=== PATIENT | female | born 1965 | race Hispanic/Latino ===

== ENCOUNTER → 2017-09-16 | Outpatient (CLI) | payer BC ==
[~2017-09-16] MED LIST: FEXO-23 PO; METO-408 PO; ROSU5TAB PO; WARF5TAB76 PO
== END | disposition home or self-care (01) ==
LOC: RAH 12:52
PROVIDERS: ATTEND Internal Medicine Cardiovascular Disease
DX: I71.1 Thoracic aortic aneurysm, ruptured (principal)
CPT/HCPCS: 71250

== ENCOUNTER → 2018-11-10 | Outpatient (CLI) | payer BC | END | disposition home or self-care (01) | LOC: RAH 12:57 | PROVIDERS: ATTEND Internal Medicine Cardiovascular Disease | DX: I71.2 Thoracic aortic aneurysm, without rupture (principal); Q25.49 Other congenital malformations of aorta | CPT/HCPCS: 71250 ==

== ENCOUNTER 2020-03-26 08:09 | Day surgery (SDC) | payer BC ==
[2020-03-25 13:10] LABS: BASOPHILS % (AUTO) 0.5 % (0.0-5.0); EOSINOPHILS % (AUTO) 0.5 % (0.0-8.0); HEMATOCRIT 35.8 % (36-48); LYMPHOCYTES % (AUTO) 33.9 % (21.0-51.0); MEAN CORPUSCULAR HEMOGLOBIN 25.8 pg (27.0-33.0); MEAN CORPUSCULAR HGB CONC 31.6 g/dL (32.0-36.0); MEAN CORPUSCULAR VOLUME 81.7 fL (79-99); MONOCYTES % (AUTO) 5.1 % (3.0-13.0); NEUTROPHILS % (AUTO) 59.7 % (40.0-77.0); PLATELET COUNT (AUTO) 276 K/uL (130-400); RED BLOOD CELL COUNT(AUTO) 4.38 MIL/uL (4.00-5.50); RED CELL DISTRIBUTION WIDTH 15.7 % (11.0-15.5); WHITE BLOOD COUNT (AUTO) 6.2 K/uL (4.8-10.8)
[2020-03-25 13:24] LABS: CREATININE 0.8 mg/dL (0.5-1.5); POTASSIUM 4.4 mmol/L (3.5-5.1)
[2020-03-25 13:27] LABS: INR 3.38 (0.85-1.15); PARTIAL THROMBOPLASTIN TIME 45.3 SEC (26.3-35.5); PROTHROMBIN TIME 34.8 SEC (9.6-11.6)
[2020-03-25 14:44] VITALS: BP 120/64
--- NOTE | 2020-03-25 14:48 | NUR ---
REPORT CALLED MARIANNA REARDON WITH DR BECKER AND INFORMED OF ABNORMAL PT/INR/PTT AND PT SCHEDULED FOR ZACHERY. NO NEW ORDERS GIVEN. MD WILL PROCEED WITH PROCEDURE
[2020-03-26] VITALS (18 sets, daily range): BP systolic 103–169; BP diastolic 55–93
[~2020-03-26] VITALS: Ht 165.1 cm; Wt 67.3 kg
[~2020-03-26 08:09] MED LIST changes: +AEC81 PO; +ESCI5TAB PO; -FEXO-23 PO; +LOSA25TA41 PO; +ROSU10TA28 PO; -ROSU5TAB PO; +VITAMIN B12 COMPLEX PO; +VITAMIN D PO; +WARF5TAB PO; -WARF5TAB76 PO
[2020-03-26] MEDS ORDERED: LIDOCAINE HCL 2% VISCOUS 15 ML UDCUP PO SCH (08:26)
[2020-03-26] MEDS ORDERED: SODIUM CHLORIDE 0.9% 1000ML 1,000 ML IV ONE (09:30)
[2020-03-26] MEDS ORDERED: MIDAZOLAM HCL 1 MG/ML 2ML VIAL ONE ×2 (11:30→11:52)
[2020-03-26] MEDS ORDERED: FENTANYL CITRATE PF 50 MCG/1 ML 2ML VIAL ONE (11:31)
== END 2020-03-26 13:10 | disposition home or self-care (01) ==
LOC: DAH 08:09 → EDSTATUS 11:30 → DAH 13:10
PROVIDERS: ATTEND Internal Medicine Cardiovascular Disease
DX: I08.3 Combined rheumatic disorders of mitral, aortic and tricuspid valves (principal); I25.3 Aneurysm of heart; I20.9 Angina pectoris, unspecified; Z91.013 Allergy to seafood; Z88.8 Allergy status to other drugs, medicaments and biological substances; Z91.018 Allergy to other foods; Z79.82 Long term (current) use of aspirin; Z79.899 Other long term (current) drug therapy; Z79.01 Long term (current) use of anticoagulants; Z79.02 Long term (current) use of antithrombotics/antiplatelets; Z95.810 Presence of automatic (implantable) cardiac defibrillator; Z98.890 Other specified postprocedural states
CPT/HCPCS: 36415; 80048; 85025; 85610; 85730; 93005; 93313; A4215; A4216; A4221; A4222; A4223 ×3; A4606; A4663; J2250 ×2; J3010; J7030; 99152

== ENCOUNTER 2022-12-02 06:03 | Day surgery (SDC) | payer BC ==
[2022-11-30 10:45] LABS: BASOPHILS % (AUTO) 0.5 % (0.0-5.0); EOSINOPHILS % (AUTO) 0.7 % (0.0-8.0); HEMATOCRIT 38.8 % (36-48); LYMPHOCYTES % (AUTO) 20.8 % (21.0-51.0); MEAN CORPUSCULAR HEMOGLOBIN 27.3 pg (27.0-33.0); MEAN CORPUSCULAR HGB CONC 31.2 g/dL (32.0-36.0); MEAN CORPUSCULAR VOLUME 87.6 fL (79-99); NEUTROPHILS % (AUTO) 74.5 % (40.0-77.0); PLATELET COUNT (AUTO) 235 K/uL (130-400); RED BLOOD CELL COUNT(AUTO) 4.43 MIL/uL (4.00-5.50); RED CELL DISTRIBUTION WIDTH 14.1 % (11.0-15.5); WHITE BLOOD COUNT (AUTO) 5.7 K/uL (4.8-10.8)
[2022-11-30 10:54] LABS: CREATININE 0.8 mg/dL (0.5-1.5); POTASSIUM 4.4 mmol/L (3.5-5.1)
[2022-11-30 10:56] LABS: INR 2.14 (0.85-1.15); PROTHROMBIN TIME 22.3 SEC (9.6-11.6)
[2022-11-30 10:58] LABS: PARTIAL THROMBOPLASTIN TIME 41.8 SEC (26.3-35.5)
[2022-11-30 11:09] VITALS: BP 142/84
[2022-12-02] VITALS (10 sets, daily range): BP systolic 120–162; BP diastolic 61–87
[~2022-12-02] VITALS: Ht 162.6 cm; Wt 71.9 kg
[~2022-12-02 06:03] MED LIST changes: +PRED20TA3 PO; -VITAMIN B12 COMPLEX PO; -VITAMIN D PO
[2022-12-02] MEDS ORDERED: 0.9%NACL 1000ML 1,000 ML IV ONE (06:17)
[2022-12-02 07:12] LABS: INR 1.26 (0.85-1.15); PROTHROMBIN TIME 13.6 SEC (9.6-11.6)
[2022-12-02] MEDS ORDERED: LIDOCAINE HCL 1% MDV 50ML VIAL ONE (07:15)
[2022-12-02] MEDS ORDERED: MEPERIDINE-PF 25 MG/ML SYG ONE ×4 (07:15→08:22)
[2022-12-02] MEDS ORDERED: MIDAZOLAM HCL 1 MG/ML 2ML VIAL ONE ×4 (07:15→08:22)
[2022-12-02] MEDS ORDERED: BUPIVACAINE/PF 0.25% 10ML VIAL IJ ONE (07:16)
[2022-12-02] MEDS ORDERED: CEFAZOLIN SODIUM 1 GM VIAL ONE ×2 (07:16→11:53)
[2022-12-02] MEDS ORDERED: THROMBIN-JMI 5000 UNIT/VIAL TP ONE (08:24)
[2022-12-02] MEDS ORDERED: BACITRACIN 1 EACH PACKET TP ONE (08:43)
[2022-12-02] MEDS ORDERED: ACETAMINOPHEN WITH CODEINE 1 TAB TAB PO PRN ×2 (09:00)
[2022-12-02] MEDS ORDERED: 0.9%NACL 50ML 50 ML IV ONE (11:52)
[2022-12-02] MEDS ORDERED: CEFAZOLIN SODIUM 1 GM VIAL IVPB SCH (14:00)
== END 2022-12-02 14:05 | disposition home or self-care (01) ==
LOC: DAH 06:03
PROVIDERS: ATTEND Internal Medicine Cardiovascular Disease
DX: Z45.02 Encounter for adjustment and management of automatic implantable cardiac defibrillator (principal); I44.2 Atrioventricular block, complete; I42.8 Other cardiomyopathies; I50.42 Chronic combined systolic (congestive) and diastolic (congestive) heart failure; I35.1 Nonrheumatic aortic (valve) insufficiency; Z88.3 Allergy status to other anti-infective agents; Z79.82 Long term (current) use of aspirin; Z79.01 Long term (current) use of anticoagulants; Z91.013 Allergy to seafood; Z79.899 Other long term (current) drug therapy
CPT/HCPCS: 80048; 85025; 85610 ×2; 85730; 36415 ×2; 93005; 33264; C1882; J0690 ×2; J7030; J2250 ×4; J3490 ×3; J2175 ×4; A4215; A4335; A4222; A4221; A4663; A4216; A4606; A4223 ×3; A4554; 99156; 99157

== ENCOUNTER → 2023-01-27 | Outpatient (CLI) | payer BC ==
[~2023-01-27] MED LIST changes: -PRED20TA3 PO
== END | disposition home or self-care (01) ==
LOC: RAH 13:55
PROVIDERS: ATTEND Internal Medicine Cardiovascular Disease
DX: I71.21 Aneurysm of the ascending aorta, without rupture (principal); I71.40 Abdominal aortic aneurysm, without rupture, unspecified; I25.10 Atherosclerotic heart disease of native coronary artery without angina pectoris; M47.815 Spondylosis without myelopathy or radiculopathy, thoracolumbar region
CPT/HCPCS: 71250

== ENCOUNTER → 2023-10-14 | Outpatient (CLI) | payer BC, SELFPAY ==
[~2023-10-14] MED LIST changes: +DiphenhydrAMINE HCL 50 MG/ML VIAL ONE; +IOHEXOL 350 MG/ML 100ML INFUS..BTL IV ONE; +SOLU-MEDROL 125MG VIAL ONE
== END | disposition home or self-care (01) ==
LOC: RAH 09:35
PROVIDERS: ATTEND Internal Medicine Cardiovascular Disease
DX: R07.9 Chest pain, unspecified (principal)
CPT/HCPCS: 75574; J1200; J2930; Q9967